=== PATIENT | female | born 1995 | race Two or more races ===

== ENCOUNTER 2020-11-10 21:39 | Emergency (ER) | payer MEDICAID ==
[~2020-11-10] VITALS: Ht 162.6 cm; Wt 82.0 kg
[2020-11-10] MEDS ORDERED: KETOROLAC 60MG/2ML VIAL IM ONE (22:45)
[2020-11-10] MEDS ORDERED: IBUP-2029 MT (22:58)
[2020-11-10] MEDS ORDERED: BENZ1LOZ60 MT (22:58)
[2020-11-10 23:18] VITALS: BP 131/76
[2020-11-10 23:21] LABS: MONOTEST NEGATIVE (NEGATIVE)
== END 2020-11-10 23:49 | disposition home or self-care (01) ==
LOC: ER 21:39
DX: J02.9 Acute pharyngitis, unspecified (principal); Z90.49 Acquired absence of other specified parts of digestive tract
CPT/HCPCS: 86308; 87070; 87430; 96372; 99283; J1885